=== PATIENT | female | born 1995 | race Caucasian/White ===

== ENCOUNTER 2022-04-28 14:12 | Emergency (ER) | payer OTHER ==
[2022-04-28 15:08] LABS: HEMOGLOBIN 13.2 gm/dl (12.3-15.3); RED BLOOD COUNT 4.65 M/UL (4.00-5.10); WHITE BLOOD COUNT 6.4 K/UL (4.5-11.0)
[2022-04-28 15:26] LABS: BUN/CREATININE RATIO 16 (0-10)
[2022-04-28] MEDS ORDERED: IBUPROFEN800 MG PO (18:43)
== END 2022-04-28 19:10 | disposition home or self-care (01) ==
LOC: ER1 14:12
PROVIDERS: Physician Assistant
DX: M79.81 Nontraumatic hematoma of soft tissue (principal)
CPT/HCPCS: 73701; 80048; 85025; 85379; 99284; Q9967

== ENCOUNTER → 2022-04-29 | Outpatient (CLI) | payer OTHER ==
[~2022-04-29] MED LIST: IBUPROFEN800 MG PO
== END ==
LOC: US 09:44
DX: R22.42 Localized swelling, mass and lump, left lower limb (principal)
CPT/HCPCS: 93971